=== PATIENT | female | born 1960 | race American Indian/Alaskan Native ===

== ENCOUNTER 2020-10-08 01:06 | Inpatient (IN) | payer OTHER ==
[2020-10-08] MEDS ORDERED: ASPIRIN 81 MG TAB CHEW PO ONE (01:39)
[2020-10-08] MEDS ORDERED: NITROGLYCERIN 0.4 MG TAB SUBL SL ONE (01:40)
--- NOTE | 2020-10-08 01:43 | Emergency Department Report ---
ED Chest Pain HPI - General Chief Complaint: Chest Pain Stated Complaint: SHOULDER PAIN/CHEST TIGHTNESS/ABD PAIN Time Seen by Provider: 10/08/20 01:35 Source: patient Mode of arrival: Ambulatory Limitations: No Limitations - History of Present Illness Initial Comments: Patient is 60 years old female with no significant past medical history. Patient presented to the ER complaining of diffuse chest pain. Patient stated that pain started immediately after she picked up a heavy work case. Patient stated that pain started in the right shoulder and then moved to the left side. She described her pain as tightness. Patient denied any fever or chills. No cough or shortness of breath. MD Complaint: chest pain -: This afternoon Pain Location: substernal, left chest, right chest Pain Radiation: LUE Severity: moderate Severity scale (0 -10): 6 Quality: tightness, aching Consistency: constant - Related Data Previous Rx's Medication Instructions Recorded Last Taken Type Sulfamethoxazole/Trimethoprim 1 each PO BID 10 Days #20 tablet 04/14/19 Unknown Rx [Bactrim DS TAB] Allergies Allergy/AdvReac Type Severity Reaction Status Date / Time No Known Allergies Allergy Unverified 10/08/20 01:13 Heart Score - HEART Score History: Moderately suspicious EKG: Non-specific Age: 45-65 Risk factors: 1-2 risk factors Troponin: < normal limit HEART Score: 4 - Critical Actions Critical Actions: 4-6 pts:12-16.6% risk of adverse cardiac event. Should be admitted ED Review of Systems ROS: Stated complaint: SHOULDER PAIN/CHEST TIGHTNESS/ABD PAIN Other details as noted in HPI Comment: All other systems reviewed and negative Constitutional: denies: chills, diaphoresis Respiratory: denies: cough, shortness of breath, SOB with exertion, SOB at rest Cardiovascular: chest pain, palpitations Gastrointestinal: denies: abdominal pain, nausea, vomiting Musculoskeletal: denies: back pain Neurological: denies: headache, weakness ED Past Medical Hx - Past Medical History Additional medical history: Lupus - Surgical History Additional Surgical History: Tubal ligation - Social History Smoking Status: Current Every Day Smoker - Medications Home Medications: Home Medications Medication Instructions Recorded Confirmed Last Taken Type Sulfamethoxazole/Trimethoprim 1 each PO BID 10 Days #20 tablet 04/14/19 Unknown Rx [Bactrim DS TAB] ED Physical Exam - General Limitations: No Limitations General appearance: alert, in no apparent distress - Head Head exam: Present: atraumatic, normocephalic, normal inspection - Eye Eye exam: Present: normal appearance, PERRL - ENT ENT exam: Present: normal exam, normal orophraynx, mucous membranes moist - Neck Neck exam: Present: normal inspection, full ROM. Absent: tenderness, meningismus - Respiratory Respiratory exam: Present: normal lung sounds bilaterally - Cardiovascular Cardiovascular Exam: Present: tachycardia - GI/Abdominal GI/Abdominal exam: Present: soft, normal bowel sounds. Absent: distended, ten derness, guarding, rebound, rigid, organomegaly, mass, bruit, pulsatile mass, hernia - Extremities Exam Extremities exam: Present: normal inspection, full ROM, normal capillary refill. Absent: tenderness - Back Exam Back exam: Present: normal inspection, full ROM. Absent: CVA tenderness (R), CVA tenderness (L) - Neurological Exam Neurological exam: Present: alert, oriented X3, CN II-XII intact - Psychiatric Psychiatric exam: Present: normal mood - Skin Skin exam: Present: warm, intact, normal color ED Course Vital Signs 10/08/20 10/08/20 10/08/20 01:15 01:38 01:45 Temperature 98.1 F Pulse Rate 126 H 117 H Respiratory 20 12 Rate Blood Pressure 148/99 155/100 Blood Pressure [Left] Blood Pressure [Right] O2 Sat by Pulse 95 98 98 Oximetry 10/08/20 10/08/20 10/08/20 01:46 01:47 01:55 Temperature 98.7 F Pulse Rate 115 H 115 H Respiratory 26 H 26 H Rate Blood Pressure 155/100 Blood Pressure 155/100 [Left] Blood Pressure [Right] O2 Sat by Pulse 98 98 Oximetry 10/08/20 10/08/20 10/08/20 02:01 02:15 02:31 Temperature Pulse Rate 120 H 115 H 111 H Respiratory 27 H 28 H 25 H Rate Blood Pressure 155/100 148/96 148/96 Blood Pressure [Left] Blood Pressure [Right] O2 Sat by Pulse 95 96 96 Oximetry 10/08/20 10/08/20 10/08/20 02:45 03:01 03:13 Temperature Pulse Rate 110 H 108 H 107 H Respiratory 25 H 23 19 Rate Blood Pressure 148/96 148/96 Blood Pressure 120/77 [Left] Blood Pressure 120/77 [Right] O2 Sat by Pulse 99 98 98 Oximetry 10/08/20 10/08/20 10/08/20 03:15 03:31 03:45 Temperature Pulse Rate 104 H 103 H 104 H Respiratory 19 20 18 Rate Blood Pressure 120/77 120/77 120/77 Blood Pressure [Left] Blood Pressure [Right] O2 Sat by Pulse 94 96 95 Oximetry 10/08/20 04:11 Temperature Pulse Rate 103 H Respiratory 18 Rate Blood Pressure Blood Pressure [Left] Blood Pressure 120/77 [Right] O2 Sat by Pulse 95 Oximetry ED Medical Decision Making - Lab Data Result diagrams: 10/08/20 02:32 10/08/20 02:32 - EKG Data -: EKG Interpreted by Tn EKG shows normal: sinus rhythm Rate: tachycardia - EKG Data Interpretation: no acute changes - Radiology Data Radiology results: report reviewed - Medical Decision Making Patient is 60 years old female with no significant past medical history. Patient presented to the ER complaining of diffuse chest pain. Patient stated that pain started immediately after she picked up a heavy work case. Patient stated that pain started in the right shoulder and then moved to the left side. She described her pain as tightness. Patient denied any fever or chills. No cough or shortness of breath. EKG is unremarkable. Chest x-ray is negative for acute finding. Labs reviewed and is unremarkable including a negative troponin. D-dimer slightly elevated however patient CTA chest is negative for PE. Patient received aspirin, nitro and morphine. Patient stated that her chest pain is better. Patient chest pain is typical. I discussed the patient with , he agreed to admit the patient to medical service for further management. Critical care attestation.: If time is entered above; I have spent that time in minutes in the direct care of this critically ill patient, excluding procedure time. ED Disposition Clinical Impression: Acute chest pain Disposition: - OP ADMIT IP TO THIS HOSP Is pt being admited?: Yes Condition: Stable Instructions: Chest Pain (ED)
--- NOTE | 2020-10-08 02:05 | XRay Report ---
XR chest 1V ap INDICATION / CLINICAL INFORMATION: Chest Pain COMPARISON: None available. FINDINGS: SUPPORT DEVICES: None. HEART / MEDIASTINUM: No significant abnormality. LUNGS / PLEURA: Lungs are clear. Costophrenic sulci are sharp. No pneumothorax. ADDITIONAL FINDINGS: No significant additional findings. IMPRESSION: 1. No acute findings. Signer Name: Vazquez Barajas MD Signed: 10/08/2020 2:00 AM Workstation Name: [id number]
[2020-10-08 02:43] LABS: Basophils % (Auto) 0.3 % (0.0-1.8); Eosinophils % (Auto) 0.2 % (0.0-4.3); Hematocrit 44.4 % (30.3-42.9); Hemoglobin 15.3 gm/dl (10.1-14.3); Lymphocytes # (Auto) 0.8 K/mm3 (1.2-5.4); Lymphocytes % (Auto) 8.3 % (13.4-35.0); Mean Corpuscular HGB Conc 35 % (30-34); Mean Corpuscular Volume 89 fl (79-97); Monocytes # (Auto) 0.7 K/mm3 (0.0-0.8); Monocytes % (Auto) 7.3 % (0.0-7.3); Platelet Count 251 K/mm3 (140-440); Red Blood Count 4.99 M/mm3 (3.65-5.03); Red Cell Distribution Width 13.6 % (13.2-15.2)
[2020-10-08 02:55] LABS: INR 0.91 (0.87-1.13); Partial Thromboplastin Time 25.2 Sec. (24.2-36.6)
[2020-10-08] MEDS ORDERED: MORPHINE 4 MG/1 ML INJ IV ONE (02:59)
[2020-10-08] MEDS ORDERED: ONDANSETRON 4 MG/2 ML INJ IV ONE (02:59)
[2020-10-08 03:03] LABS: BUN/Creatinine Ratio 13; Blood Urea Nitrogen 10 mg/dL (7-17); Calcium 9.2 mg/dL (8.4-10.2); Hemolysis Index 5
[2020-10-08 03:39] LABS: Alanine Aminotransferase 14 units/L (7-56); Albumin 4.4 g/dL (3.9-5)
[2020-10-08 03:55] LABS: Bilirubin,Direct < 0.2 mg/dL (0-0.2)
--- NOTE | 2020-10-08 04:55 | Cat Scan Report ---
CT angio chest INDICATION / CLINICAL INFORMATION: P.E. PROTOCOL!!! CHEST PAIN WITH S.O.B.. TECHNIQUE: Axial CT images were obtained through the chest after injection of IV contrast. 3 plane MIP and/or 3D reconstructions were produced. All CT scans at this location are performed using CT dose reduction f or ALARA by means of automated exposure control. COMPARISON: None available. FINDINGS: PULMONARY ARTERIES: No pulmonary emboli. Artifact from adjacent contrast in the SVC seen within the r ight upper lobe pulmonary arteries. HEART: No significant abnormality. MEDIASTINUM / MEY: No significant abnormality. LUNGS: Mild paraseptal emphysema. Dependent and bibasilar subsegmental atelectasis. No pleural effusi on. No pneumothorax. ADDITIONAL FINDINGS: Aorta is normal. No significant additional findings. UPPER ABDOMEN: No acute findings. SKELETAL STRUCTURES: No significant osseous abnormality. IMPRESSION: 1. No pulmonary embolism is identified. 2. Subsegmental bibasilar atelectasis without other acute findings. Signer Name: Vazquez Barajas MD Signed: 10/08/2020 4:50 AM Workstation Name: [id number]
[2020-10-08] MEDS ORDERED: traMADol 50 MG TAB PO PRN (05:20)
[2020-10-08] MEDS ORDERED: ONDANSETRON 4 MG/2 ML INJ IV PRN (05:20)
[2020-10-08] MEDS ORDERED: MORPHINE 4 MG/1 ML INJ IV PRN (05:20)
[2020-10-08] MEDS ORDERED: ACETAMINOPHEN 325 MG TAB PO PRN ×2 (05:20)
[2020-10-08] MEDS ORDERED: NITROGLYCERIN 0.4 MG TAB SUBL SL PRN (05:20)
--- NOTE | 2020-10-08 05:30 | History and Physical Report ---
History of Present Illness Date of examination: 10/08/20 Date of admission: 10/08/2020 Chief complaint: Chest Pain History of present illness: 60-year-old -Burm[place] female with no significant past medical history except lupus in the past presenting to the emergency room today complaining of chest pain. Chest pain is said to have started sometime yesterday after lifting some heavy objects. Initially started on the right shoulder and later moved to the left side of her chest. Pain felt like tightness later radiating towards the left upper extremity. She denies any shortness of breath, no headache or dizziness, no nausea or vomiting, no diaphoresis. There is no known relieving or exacerbating factor. She has not had this type of pain in the past. Work-up in the emergency room today including EKG, chest x-ray and CT angiogram was not reveal any significant abnormality. Patient indicates that her mother has had multiple heart attacks and while she was in her 70s. Patient is being admitted for chest pain evaluation. Past History Past Medical History: other (Lupus) Past Surgical History: Other (Tubal ligation) Social history: smoking (Current daily smoker) Family history: CAD (In mother) Medications and Allergies Allergies Allergy/AdvReac Type Severity Reaction Status Date / Time No Known Allergies Allergy Verified 10/08/20 05:32 Home Medications Medication Instructions Recorded Confirmed Last Taken Type Sulfamethoxazole/Trimethoprim 1 each PO BID 10 Days #20 tablet 04/14/19 Unknown Rx [Bactrim DS TAB] traMADoL [Ultram 50 MG tab] 50 mg PO Q6H PRN #14 tablet 10/08/20 Unknown Rx Active Meds: Active Medications Acetaminophen (Acetaminophen 325 Mg Tab) 650 mg PO Q4H PRN PRN Reason: Pain MILD(1-3)/Fever >100.5/HOUSE Acetaminophen (Acetaminophen 325 Mg Tab) 650 mg PO Q6H PRN PRN Reason: Pain, Mild (1-3) Aspirin (Aspirin Ec 325 Mg Tab) 325 mg PO QDAY DANGELO Morphine Sulfate (Morphine 4 Mg/1 Ml Inj) 2 mg IV Q5MIN PRN PRN Reason: Chest Pain Nitroglycerin (Nitroglycerin 0.4 Mg Tab Subl) 0.4 mg SL Q5M PRN PRN Reason: Chest Pain Ondansetron HCl (Ondansetron 4 Mg/2 Ml Inj) 4 mg IV Q8H PRN PRN Reason: Nausea And Vomiting Sodium Chloride (Sodium Chloride 0.9% 10 Ml Flush Syringe) 10 ml IV BID DANGELO Sodium Chloride (Sodium Chloride 0.9% 10 Ml Flush Syringe) 10 ml IV PRN PRN PRN Reason: LINE FLUSH Sodium Chloride (Sodium Chloride 0.9% 10 Ml Flush Syringe) 10 ml IV PRN PRN PRN Reason: LINE FLUSH Tramadol HCl (Tramadol 50 Mg Tab) 50 mg PO Q6H PRN PRN Reason: Pain, Moderate (4-6) Review of Systems Constitutional: no fever, no chills Ears, nose, mouth and throat: no nasal congestion, no sore throat Cardiovascular: chest pain, no palpitations, no syncope Respiratory: no cough, no shortness of breath Gastrointestinal: no abdominal pain, no nausea, no vomiting Genitourinary Female: no pelvic pain, no flank pain, no dysuria Musculoskeletal: no neck pain, no low back pain Integumentary: no rash, no pruritis Neurological: no headaches, no confusion Psychiatric: no anxiety, no depression, no confusion Endocrine: no polydipsia, no polyuria, no nocturia Exam - Constitutional Vitals: Temp Pulse Resp BP Pulse Ox 98.7 F 103 H 18 120/77 95 10/08/20 01:46 10/08/20 04:11 10/08/20 04:11 10/08/20 04:11 10/08/20 04:11 General appearance: Present: no acute distress, well-nourished - EENT Eyes: Present: PERRL, EOM intact. Absent: scleral icterus ENT: hearing intact, clear oral mucosa, dentition normal - Neck Neck: Present: supple, normal ROM - Respiratory Respiratory effort: normal Respiratory: bilateral: CTA - Cardiovascular Rhythm: regular Heart Sounds: Present: S1 & S2. Absent: gallop, systolic murmur, diastolic murmur, rub, click - Extremities Extremities: no ischemia, pulses intact, pulses symmetrical, No edema, Full ROM Peripheral Pulses: within normal limits - Abdominal General gastrointestinal: Present: soft, non-tender, non-distended, normal bowel sounds. Absent: mass - Integumentary Integumentary: Present: clear, warm, dry. Absent: rash - Musculoskeletal Musculoskeletal: strength equal bilaterally - Psychiatric Psychiatric: appropriate mood/affect, intact judgment & insight, memory intact, cooperative - Neurologic Neurologic: CNII-XII intact, no focal deficits, moves all extremities HEART Score - HEART Score History: Moderately suspicious EKG: Non-specific Age: 45-65 Risk factors: 1-2 risk factors Troponin: Troponin T < 0.010 ng/mL (0.00-0.029) 10/08/20 02:32 Troponin: < normal limit HEART Score: 4 - Critical Actions Critical Actions: 4-6 pts:12-16.6% risk of adverse cardiac event. Should be admitted Results - Labs CBC & Chem 7: 10/08/20 13:52 10/08/20 13:52 Labs: Abnormal lab results 10/08/20 10/08/20 10/08/20 Range/Units 02:32 02:32 02:32 Hgb 15.3 H (10.1-14.3) gm/dl Hct 44.4 H (30.3-42.9) % MCHC 35 H (30-34) % Lymph % (Auto) 8.3 L (13.4-35.0) % Lymph # (Auto) 0.8 L (1.2-5.4) K/mm3 Seg Neutrophils % 83.9 H (40.0-70.0) % Seg Neutrophils # 8.3 H (1.8-7.7) K/mm3 D-Dimer 402.33 H (0-234) ng/mlDDU Glucose 150 H (65-100) mg/dL Assessment and Plan - Patient Problems (1) Acute chest pain Status: Acute Plan to address problem: Patient admitted and placed on telemetry. We will check serial cardiac enzymes. Patient placed on daily aspirin, sublingual nitroglycerin and IV morphine as nee ded for chest pain. Will await cardiology evaluation. (2) H/O systemic lupus erythematosus (SLE) Status: Chronic Plan to address problem: Patient has not had any recent flare. (3) Tobacco abuse Status: Chronic Plan to address problem: Patient counseled on quitting tobacco use. She verbalized understanding. (4) DVT prophylaxis Status: Acute Plan to address problem: Patient placed on subcutaneous Lovenox. (5) Full code status Status: Acute Plan to address problem: Patient is a full code.
--- NOTE | 2020-10-08 08:48 | Electrocardiograph Report ---
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
[2020-10-08] MEDS ORDERED: REGADENOSON 0.4 MG/5 ML INJ IV ONE ×2 (08:49→09:06)
--- NOTE | 2020-10-08 09:45 | Consultation ---
History of Present Illness Consult date: 10/08/20 Requesting physician: PEYMAN ZUNIGA Consult reason: chest pain History of present illness: The pt is a 60-year-old female with a past medical history of lupus and tobacco use. She is previously unknown to our practice. She presented with c/o chest pain which started yesterday while she was at work lifting heavy objects overhead. The pain initially started on the right shoulder and later moved to the left side of her chest. Pain felt like tightness later radiating towards the left upper extremity. She denies any shortness of breath, no headache or dizziness, no nausea or vomiting, no diaphoresis. There is no known relieving or exacerbating factor. The pain is somewhat reproducible. Pt denies any known prior cardiac issues or cardiac w/u. Past History Past Medical History: other (Lupus) Past Surgical History: Other (Tubal ligation) Social history: smoking (Current daily smoker) Family history: no significant family history Medications and Allergies Allergies Allergy/AdvReac Type Severity Reaction Status Date / Time No Known Allergies Allergy Verified 10/08/20 05:32 Home Medications Medication Instructions Recorded Confirmed Last Taken Type Sulfamethoxazole/Trimethoprim 1 each PO BID 10 Days #20 tablet 04/14/19 Unknown Rx [Bactrim DS TAB] Active Meds: Active Medications Acetaminophen (Acetaminophen 325 Mg Tab) 650 mg PO Q4H PRN PRN Reason: Pain MILD(1-3)/Fever >100.5/HOUSE Aspirin (Aspirin Ec 325 Mg Tab) 325 mg PO QDAY [facility] Enoxaparin Sodium (Enoxaparin 40 Mg/0.4 Ml Inj) 40 mg SUB-Q QDAY@2200 DANGELO; Protocol Morphine Sulfate (Morphine 4 Mg/1 Ml Inj) 2 mg IV Q5MIN PRN PRN Reason: Chest Pain Nitroglycerin (Nitroglycerin 0.4 Mg Tab Subl) 0.4 mg SL Q5M PRN PRN Reason: Chest Pain Ondansetron HCl (Ondansetron 4 Mg/2 Ml Inj) 4 mg IV Q8H PRN PRN Reason: Nausea And Vomiting Last Admin: 10/08/20 09:05 Dose: 4 mg Documented by: Sodium Chloride (Sodium Chloride 0.9% 10 Ml Flush Syringe) 10 ml IV BID DANGELO Sodium Chloride (Sodium Chloride 0.9% 10 Ml Flush Syringe) 10 ml IV PRN PRN PRN Reason: LINE FLUSH Tramadol HCl (Tramadol 50 Mg Tab) 50 mg PO Q6H PRN PRN Reason: Pain, Moderate (4-6) Review of Systems Constitutional: no weight loss, no weight gain, no fever, no chills, no sweats Ears, nose, mouth and throat: no ear pain, no nose pain, no sinus pressure, no sinus pain Cardiovascular: chest pain, no orthopnea, no palpitations, no rapid/irregular h eart beat, no edema, no syncope, no lightheadedness, no shortness of breath, no dyspnea on exertion, no high blood pressure Respiratory: no cough, no shortness of breath, no dyspnea on exertion, no congestion, no wheezing, no pain on inspiration Gastrointestinal: no abdominal pain, no nausea, no vomiting, no diarrhea, no constipation, no change in bowel habits Genitourinary Female: no pelvic pain, no flank pain, no dysuria, no urinary frequency, no urgency Musculoskeletal: no neck stiffness, no neck pain, no shooting arm pain, no arm numbness/tingling, no low back pain, no shooting leg pain Integumentary: no rash, no pruritis, no redness, no sores, no wounds Neurological: no head injury, no paralysis, no weakness, no parathesias, no numbness, no tingling, no seizures, no syncope Psychiatric: no anxiety Endocrine: no cold intolerance, no heat intolerance Hematologic/Lymphatic: no easy bruising Allergic/Immunologic: no urticaria Physical Examination Vital Signs Temp Pulse Resp BP Pulse Ox 98.1 F 126 H 20 148/99 95 10/08/20 01:15 10/08/20 01:15 10/08/20 01:15 10/08/20 01:15 10/08/20 01:15 General appearance: no acute distress HEENT: Positive: PERRL, Normocephaly, Mucus Membranes Moist Neck: Positive: neck supple, trachea midline Cardiac: Positive: Reg Rate and Rhythm, S1/S2 Lungs: Positive: Decreased Breath Sounds Neuro: Positive: Grossly Intact Abdomen: Negative: Firm Skin: Negative: Rash Musculoskeletal: No Pain Extremities: Absent: edema Results 10/08/20 02:32 10/08/20 02:32 Cardiac Enzymes 10/08/20 Range/Units 02:32 AST 10 (5-40) units/L Coagulation 10/08/20 Range/Units 02:32 PT 12.2 (12.2-14.9) Sec. INR 0.91 (0.87-1.13) APTT 25.2 (24.2-36.6) Sec. CBC 10/08/20 Range/Units 02:32 WBC 9.9 (4.5-11.0) K/mm3 RBC 4.99 (3.65-5.03) M/mm3 Hgb 15.3 H (10.1-14.3) gm/dl Hct 44.4 H (30.3-42.9) % Plt Count 251 (140-440) K/mm3 Lymph # (Auto) 0.8 L (1.2-5.4) K/mm3 [place] # (Auto) 0.7 (0.0-0.8) K/mm3 Eos # (Auto) 0.0 (0.0-0.4) K/mm3 Baso # (Auto) 0.0 (0.0-0.1) K/mm3 Comprehensive Metabolic Panel 10/08/20 10/08/20 Range/Units 02:32 02:32 Sodium 140 (137-145) mmol/L Potassium 3.8 (3.6-5.0) mmol/L Chloride 102.9 (98-107) mmol/L Carbon Dioxide 26 (22-30) mmol/L BUN 10 (7-17) mg/dL Creatinine 0.8 (0.6-1.2) mg/dL Glucose 150 H (65-100) mg/dL Calcium 9.2 (8.4-10.2) mg/dL Direct Bilirubin < 0.2 (0-0.2) mg/dL Indirect Bilirubin 0.0 mg/dL AST 10 (5-40) units/L ALT 14 (7-56) units/L Alkaline Phosphatase 110 (35-129) units/L Total Protein 6.7 (6.3-8.2) g/dL Albumin 4.4 (3.9-5) g/dL - Imaging and Cardiology EKG: report reviewed, image reviewed EKG interpretations - Telemetry EKG Rhythm: Sinus Tachycardia - EKG Sinus rhythms and dysrhythmias: sinus tachycardia Chamber hypertrophy or enlargement: left ventricular hypertro Assessment and Plan AMI r/o. DDimer elevated - chest CTA negative for PE. Chest pain appears atypical, suspect musculoskeletal in origin. S/p lexiscan MPI stress test today which was negative. tte with no significant abnormalities. Currently stable cardiac status. Pt may discharge from cardiology standpoint. Consider trial of NSAIDS at discharge per primary in setting of suspected muscu loskeletal chest pain. Recommend follow up in our office with Dr. Saravia within 2 weeks of discharge ([phone]). The patient has been seen in conjunction with Dr. Saravia who agrees with the a ssessment and plan of care. - Patient Problems (1) Acute chest pain Current Visit: Yes Status: Acute (2) HTN (hypertension) Current Visit: Yes Status: Chronic (3) Sinus tachycardia Current Visit: Yes Status: Acute (4) H/O systemic lupus erythematosus (SLE) Current Visit: Yes Status: Chronic (5) Tobacco abuse Current Visit: Yes Status: Chronic
--- NOTE | 2020-10-08 10:29 | Electrocardiograph Report ---
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
[2020-10-08 11:45] VITALS: BP 141/94
--- NOTE | 2020-10-08 12:26 | Discharge Summary ---
Providers - Providers Date of Admission: 10/08/20 05:16 Date of discharge: 10/08/20 Attending physician: ZAKI FALCON 10/08/20 Consult to Cardiac Rehabilitation [CONS] Routine Reason For Exam: Phase I 10/08/20 05:20 Consult to Cardiology [CONS] Routine Consulting Provider: CATRACHITO PATINO Reason For Exam: chest pain Primary care physician: [employer] Hospitalization Condition: Stable Disposition: DC- TO HOME OR SELFCARE Final Discharge Diagnosis (Prints w/discharge instructions): (1) Acute chest pa in, likely musculoskeletal/costochondritis. Current Visit: Yes Status: Acute. (2) HTN (hypertension). Current Visit: Yes Status: Chronic. (3) Sinus tachycardia. Current Visit: Yes Status: Acute. (4) H/O systemic lupus erythematosus (SLE). Current Visit: Yes Status: Chronic. (5) Tobacco abuse. Current Visit: Yes Status: Chronic Time spent for discharge: 34 minutes Core Measure Documentation - Palliative Care Palliative Care/ Comfort Measures: Not Applicable - Core Measures Any of the following diagnoses?: none Exam - Constitutional Vitals: Temp Pulse Resp BP Pulse Ox 98.4 F 113 H 16 141/94 92 10/08/20 05:38 10/08/20 10:03 10/08/20 10:03 10/08/20 10:03 10/08/20 10:03 Plan Activity: advance as tolerated Weight Bearing Status: Non-Weight Bearing Diet: low fat, low salt Follow up with: PRIMARY CAREMD [Primary Care Provider] - 3-5 Days CHUN NARVAEZ MD [Staff Physician] - 7 Days Prescriptions: traMADoL [Ultram 50 MG tab] 50 mg PO Q6H PRN #14 tablet PRN Reason: Pain, Moderate (4-6)
--- NOTE | 2020-10-08 13:27 | Treadmill Report ---
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
[2020-10-08 14:13] LABS: Basophils # (Auto) 0.1 K/mm3 (0.0-0.1); Basophils % (Auto) 1.1 % (0.0-1.8); Eosinophils # (Auto) 0.1 K/mm3 (0.0-0.4); Eosinophils % (Auto) 0.6 % (0.0-4.3); Hematocrit 45.1 % (30.3-42.9); Hemoglobin 15.3 gm/dl (10.1-14.3); Lymphocytes # (Auto) 1.4 K/mm3 (1.2-5.4); Lymphocytes % (Auto) 13.2 % (13.4-35.0); Mean Corpuscular HGB Conc 34 % (30-34); Mean Corpuscular Volume 91 fl (79-97); Monocytes # (Auto) 0.7 K/mm3 (0.0-0.8); Monocytes % (Auto) 6.6 % (0.0-7.3); Platelet Count 238 K/mm3 (140-440); Red Blood Count 4.96 M/mm3 (3.65-5.03); Red Cell Distribution Width 13.7 % (13.2-15.2)
[2020-10-08 14:29] LABS: Blood Urea Nitrogen 7 mg/dL (7-17); Calcium 9.5 mg/dL (8.4-10.2); Hemolysis Index 5
[2020-10-08 14:32] LABS: BUN/Creatinine Ratio 12
[2020-10-08] MEDS ORDERED: ENOXAPARIN 40 MG/0.4 ML INJ SUB-Q SCH (22:00)
[2020-10-09] MEDS ORDERED: ASPIRIN EC 325 MG TAB PO SCH (10:00)
== END 2020-10-08 15:29 | disposition home or self-care (01) | DRG 206 ==
LOC: ED 01:06 → 4A 05:16
PROVIDERS: ADMIT Internal Medicine Geriatric Medicine; ATTEND Internal Medicine
DX: M94.0 Chondrocostal junction syndrome [Tietze] (principal); R07.89 Other chest pain; I10 Essential (primary) hypertension; F17.200 Nicotine dependence, unspecified, uncomplicated; Z98.51 Tubal ligation status; Z79.899 Other long term (current) drug therapy; Z82.49 Family history of ischemic heart disease and other diseases of the circulatory system
CPT/HCPCS: 36415; 71045; 71275; 78452; 80048; 80076; 83690; 84484; 85025; 85379; 85610; 85730; 93005; 93017; 93306; 96374; 99406; G0378; A9502; J2270; J2405; J2785; Q9967